=== PATIENT | female | born 1935 | race Caucasian/White ===

== ENCOUNTER 2017-12-22 05:30 | Inpatient (IN) | payer OTHER ==
[~2017-12-22] VITALS: Ht 160 cm; Wt 67.1 kg
[2017-12-22] MEDS ORDERED: ALVIMOPAN 12 MG CAPSULE PO ONE ×2 (05:56→07:00)
[2017-12-22] MEDS ORDERED: LEVOFLOXACIN 500 MG/D5W 100 ML IV ONE ×2 (07:00→11:15)
[2017-12-22] MEDS ORDERED: metroNIDAZOLE 500 mg/NS 100 ML PREMIX IV ONE (07:00)
[2017-12-22] MEDS ORDERED: D5LR 1,000 ML IV.SOLN IV ONE (07:30)
[2017-12-22] MEDS ORDERED: metroNIDAZOLE 500 mg/NS 100 mL IVPB IV ONE (07:30)
[2017-12-22] MEDS ORDERED: MIDAZOLAM HCL 5 MG/5 ML VIAL IVP ONE (07:30)
[2017-12-22] MEDS ORDERED: LR 1,000 ML IV.SOLN IV ONE (07:30)
[2017-12-22] MEDS ORDERED: SEVOFLURANE 15 MIN GAS INH ONE (07:30)
[2017-12-22] MEDS ORDERED: ePHEDrine sulfate 50 MG/ML VIAL IVP ONE (07:30)
[2017-12-22] MEDS ORDERED: NEOSTIGMINE METHYLSULFATE 1 MG/ML, 10 ML VIAL IVP ONE (07:30)
[2017-12-22] MEDS ORDERED: GLYCOPYRROLATE 0.2 MG/ML VIAL IJ ONE (07:30)
[2017-12-22] MEDS ORDERED: ROCURONIUM BROMIDE 10 MG/ML (ZEMURON) IV ONE (07:30)
[2017-12-22] MEDS ORDERED: LEVOFLOXACIN 500 MG/D5W 100 ML PIGGYBACK IV ONE (07:30)
[2017-12-22] MEDS ORDERED: PROPOFOL 200MG/ 20ML VIAL (DIPRIVAN) IV ONE (07:30)
[2017-12-22] MEDS ORDERED: POLYMYXIN 500,000/BACIT.10,000 UNITS in NS IRR 1 L IR ONE (08:35)
[2017-12-22] MEDS ORDERED: NALOXONE HCL 0.4 MG/ML AMP (NARCAN) IVP PRN (08:45)
[2017-12-22] MEDS ORDERED: FENT2mCg/mL-ROPIVA0.2%/NS EPID 100 ML EP SCH (08:45)
[2017-12-22] MEDS ORDERED: DIPHENHYDRAMINE INJ 50 MG/ML VIAL IVP PRN (08:45)
[2017-12-22] MEDS ORDERED: ONDANSETRON HCL 4 MG/2 ML VIAL IVP PRN ×2 (08:45→11:15)
[2017-12-22] MEDS ORDERED: NALBUPHINE HCL 10 MG/ML AMP IVP PRN (08:45)
[2017-12-22] MEDS ORDERED: ROPIVACAINE 0.2% 100 ML ONE (09:25)
[2017-12-22] MEDS: D5/0.45 NS 1,000 ML IV SCH ×2 (11:09→21:09)
[2017-12-22] MEDS ORDERED: HYDROcodone/ACETAMIN 5-325 MG TAB (NORCO/ VICODIN) PO PRN (11:15)
[2017-12-22] MEDS: metroNIDAZOLE 500 mg/NS 100 ML IV SCH ×3 (12:00→21:53)
[2017-12-22 12:03] LABS: HEMATOCRIT 33.1 % (36-48); HEMOGLOBIN 10.7 g/dL (12.0-16.0)
--- NOTE | 2017-12-22 12:08 | NUR ---
ADMIT NOTE PATIENT ARRIVED VIA GURNEY WITH OR NURSE, FENTANYL EPIDURAL DRIP. PATIENT REPORTS DULL ACHE TO LEFT ABDOMEN. LEFT ABDOMEN COVERED IN CLEAN AND DRY SURGICAL DRESSING. S/P HEMICOLECTOMY. FAMILY IS AT BEDSIDE. PATIENT IS DROWSY, ORIENTED X 4, ADVISED THAT SHE MAY HAVE ICE CHIPS AND SIPS, NO JUICE OR ANY OTHER FOODS. FAMILY IS CONCERNED ABOUT PATIENT'S BLOOD GLUCOSE, CONFIRMED PATIENT WILL GET ACCUCHECKS DURING STAY. BED IN LOW AND LOCKED POSITION, 3 SIDE RAILS UP. ASKED PATIENT NOT TO ATTEMPT TO GET OUT OF BED AT THIS TIME AND TO CALL FOR ASSISTANCE. PER OPHTHALMIC TECH PATIENT HAS TWO WATERY DIARRHEA BM IN RECOVERY, GRAY CATH PLACED IN OR, NO URINE AT THIS TIME. IV OF LR INFUSING, D5NS HUNG, CLAMPED. PER OR BG WAS 168. LUNGS CLEAR 1000CM ON INSPIROMETER, SHEET IRONWORKER AND CONTINUOUS PULSE OX PLACED ON PATIENT. POST SURGERY VITALS IN PROCESS. ALL VITALS WNL AT THIS TIME.
[2017-12-22 12:09] LABS: ANION GAP 8 (5-15); CALCIUM 8.1 mg/dL (8.4-11.0); CHLORIDE 108 mmol/L (98-107); CREATININE 0.89 mg/dL (0.55-1.30); GLUCOSE 176 mg/dL (70-99); SODIUM SERUM 141 mmol/L (136-145); UREA NITROGEN, BLOOD 21 mg/dL (8-21)
[2017-12-22 12:20] VITALS: BP_SYST 121
[2017-12-22] MEDS: HYDROmorphone 1 MG INJ. 1 MG/ML AMPUL IVP PRN ×2 (12:46→20:30)
[2017-12-22] MEDS ORDERED: DEXTROSE 50% JECT 50 ML DISP.SYRIN IVP PRN (13:30)
[2017-12-22 15:08] VITALS: BP_SYST 118
--- NOTE | 2017-12-22 15:30 | NUR ---
rounds rec patient asleep with family at bedside. ivf infusing well on the l hand. no infiltration noted.eodural cath intact on the back. hob slightly elevated with o2 at 2 liters via nasal cannula. no sob noted. abd dressing dry and intact. no bleeding noted. aguirre cath intact and draining to abelardo output. angie scd in placed. asleep and denies pain at this time.
[2017-12-22] MEDS: INSULIN REGULAR, HUMAN 100 UNITS/ML, 10 ML VIAL (novoLIN R) SUBCUT PRN ×2 (17:27→23:16)
--- NOTE | 2017-12-22 18:00 | NUR ---
rounds dr garcia was called covering for dr westfall and reported bleeding on the lower part of the abdomen. band aid was removed and redressed. reinforced dressing was done. will observe for any further bleeding. no sob noted.
--- NOTE | 2017-12-22 19:00 | NUR ---
closing notes no further bleeding noted on the lower abdomen dressing. family in the room with patient. no sob noted. call light within reached. bed in low position and call light within reached
[2017-12-22] MEDS ORDERED: COMMUNICATION ORDER XX ONE (19:15)
[2017-12-22] MEDS: FENT2mCg/mL-ROPIVA0.2%/NS EPID 200 ML EP SCH (19:52)
[2017-12-22 20:00] VITALS: BP_SYST 121
--- NOTE | 2017-12-22 20:00 | NUR ---
Initial PM Note Pt was received lying in bed fully awake, alert and oriented x4. Speech is clear and pt is able to make her needs known. Family members are visiting at the bedside. Epidural Fentanyl/Ropivacaine is infusing well at 13ml/hr with the site dry and intact. Pt denies numbness or tingling sensation. Abdominal dressing is dry and intact. Pt c/o abdominal incisional pain and RN will medicate pt as ordered by MD. Pt was instructed on nothing by mouth and pt verbalized understanding. Skin is warm and dry to touch. No signs or symptoms of hypoglycemia or hyperglycemia noted. IVF of D5 1/2 NS is infusing well in LH at 100ml/hr without any signs of infiltration. Centeno Catheter to gravity drainage is intact and draining clear yellowish urine. Pt was instructed to use IS 10x Q 1hr WA and pt verbalized understanding. Pt's IS use is ranging from 1000ml to 1250ml. Fall and safety precautions are in place. Pt was instructed to call for assistance as needed and pt verbalized understanding. Call light is with pt and bed alarm is on. Will continue to monitor pt.
--- NOTE | 2017-12-22 20:30 | NUR ---
Pain Medication Dilaudid 1mg was given IV for c/o abdominal incisional pain with relief. IVF is infusing well in . Fall and safety precautions are in place. Pt was instructed to call for assistance as needed and pt verbalized understanding. Call light is with pt and bed alarm is on. Will continue to monitor pt.
[2017-12-22] MEDS: ALVIMOPAN 12 MG CAPSULE PO SCH (21:48)
[2017-12-22] MEDS: FAMOTIDINE PF 20 MG/2 ML VIAL IVP SCH (21:49)
--- NOTE | 2017-12-22 22:00 | NUR ---
Rounds Pt is sleeping quietly in bed and easily arousable. Epidural Fentanyl/Ropivacaine and IVF of D5 1/2 NS are both infusing well with the sites dry and intact. Pt denies pain or discomfort at this time. Call light is with pt and bed alarm is on. Will continue to monitor pt.
--- NOTE | 2017-12-23 | NUR ---
Rounds Pt is sleeping and easily arousable. No acute distress noted. Epidural infusion and peripheral IVF are infusing well. Abdominal dressing remains dry and intact. Call light is with pt and bed alarm is on. Will continue to monitor pt.
[2017-12-23 00:10] VITALS: BP_SYST 124
--- NOTE | 2017-12-23 02:00 | NUR ---
Rounds Pt is sleeping without any distress noted. Fall and safety precautions are in place. Call light is with pt and bed alarm is on.
[2017-12-23] MEDS: D5/0.45 NS 1,000 ML IV SCH ×3 (02:38→21:58)
--- NOTE | 2017-12-23 04:00 | NUR ---
Rounds Pt is sleeping without any distress noted. Fall and safety precautions are in place. Call light is with pt and bed alarm is on. IVF is infusing well in LH at 100ml/hr. Epidural drip is infusing well at 13ml/hr. Will continue to monitor pt.
[2017-12-23] MEDS: HYDROmorphone 1 MG INJ. 1 MG/ML AMPUL IVP PRN (05:32)
--- NOTE | 2017-12-23 05:32 | NUR ---
Pain Medication Dilaudid 1mg was given IV for c/o abdominal incisional pain with relief. IVF is infusing well in LH. Epidural drip is infusing well at 13ml/hr. Fall and safety precautions are in place. Call light is with pt and bed alarm is on. Will continue to monitor pt.
[2017-12-23] MEDS: INSULIN REGULAR, HUMAN 100 UNITS/ML, 10 ML VIAL (novoLIN R) SUBCUT PRN ×4 (05:39→23:59)
[2017-12-23 06:33] LABS: ALANINE AMINOTRANSFERASE 17 U/L (12-78); ALBUMIN 2.3 g/dL (3.4-4.8); ANION GAP 5 (5-15); ASPARTATE AMINOTRANSFERASE 17 U/L (10-37); CALCIUM 7.9 mg/dL (8.4-11.0); CHLORIDE 107 mmol/L (98-107); CREATININE 1.17 mg/dL (0.55-1.30); GLUCOSE 286 mg/dL (70-99); POTASSIUM 4.8 mmol/L (3.5-5.1); SODIUM SERUM 138 mmol/L (136-145); TOTAL BILIRUBIN 0.4 mg/dL (0.0-1.0); UREA NITROGEN, BLOOD 25 mg/dL (8-21)
[2017-12-23 06:51] LABS: BASOPHILS % (AUTO) 0.3 % (0.0-2.0); EOSINOPHILS % (AUTO) 0.1 % (0.0-4.0); HEMATOCRIT 28.3 % (36-48); HEMOGLOBIN 9.5 g/dL (12.0-16.0); LYMPHOCYTES # (AUTO) 0.9 K/uL (1.0-5.5); LYMPHOCYTES % (AUTO) 8.1 % (20.5-51.5); MEAN CORPUSCULAR HEMOGLOBIN 27 pg (27-31); MEAN CORPUSCULAR HGB CONC 34 % (32-36); MEAN CORPUSCULAR VOLUME 79 fL (79.0-98.0); MONOCYTES # (AUTO) 1.2 K/uL (0.0-1.0); MONOCYTES % (AUTO) 11.2 % (1.7-9.3); NEUTROPHILS # (AUTO) 8.5 K/uL (1.8-7.7); NEUTROPHILS % (AUTO) 80.3 % (40.0-70.0); PLATELET COUNT (AUTO) 152 K/uL (130-430); RED BLOOD CELL COUNT(AUTO) 3.57 MIL/uL (4.2-6.2); RED CELL DISTRIBUTION WIDTH 14.9 % (9.0-15.0); WHITE BLOOD COUNT (AUTO) 10.6 K/uL (4.8-10.8)
--- NOTE | 2017-12-23 06:56 | NUR ---
Closing Note Pt is awake and resting comfortably in bed. IVF is infusing well in LH. Abdominal dressing is dry and intact with abdominal binder in place. All pt's needs were attended to. No fall or injury noted this shift. Call light is with pt and bed alarm is on. Will endorse to day shift nurse.
--- NOTE | 2017-12-23 07:55 | NUR ---
INITIAL NOTE RECEIVED PT IN BED, NO S/S OF DISTRESS OR SOB NOTED, PT HAS NO C/O PAIN AT THIS TIME, PT IN STABLE CONDITION, PT AAOX4, VERBAL. IV CATHETER PATENT, NO SIGNS OF INFECTION OR INFILTRATION NOTED. SAFETY PRECAUTIONS IN PLACE, BED AT LOWEST POSITION, CALL LIGHT WITHIN REACH, FALL PRECAUTIONS IN PLACE, WILL CONTINUE TO MONITOR PT FOR ANY CHANGES. PT HAS ABD BINDER IN PLACE, EDUCATED PT ON USE OF INCENTIVE SPIROMETER, PT TO USE 10 TIMES AN HOUR WHILE AWAKE, PT VERBALIZED UNDERSTANDING, PT AT 1000ML. PT ON EPIDURAL DRIP AT 13ML/HR, CATHETER INTACT. F/C DRAINING VIA GRAVITY. ABD DRESSING CLEAN AND DRY. PT ON OXYGEN 2 LITERS VIA NASAL CANNULA, SATURATION OF 99%.
[2017-12-23] MEDS: FAMOTIDINE PF 20 MG/2 ML VIAL IVP SCH ×2 (08:41→21:31)
[2017-12-23] MEDS: ALVIMOPAN 12 MG CAPSULE PO SCH ×2 (08:41→21:30)
[2017-12-23] MEDS: ENOXAPARIN SODIUM 30 MG/0.3 ML SYRINGE SUBCUT SCH (08:43)
[2017-12-23 08:54] VITALS: BP_SYST 144
--- NOTE | 2017-12-23 10:55 | NUR ---
ROUNDS PT IN BED, NO S/S OF DISTRESS OR SOB NOTED, PT HAS NO C/O PAIN AT THIS TIME, PT IN STABLE CONDITION, PT RESTING COMFORTABLY, WILL CONTINUE TO MONITOR PT FOR ANY CHANGES.
[2017-12-23] MEDS: HYDROcodone/ACETAMIN 5-325 MG TAB (NORCO/ VICODIN) PO PRN (11:10)
[2017-12-23] MEDS: LEVOFLOXACIN 250 MG/D5W 50 ML IV SCH (11:18)
[2017-12-23 11:25] VITALS: BP_SYST 139
[2017-12-23] MEDS: FENT2mCg/mL-ROPIVA0.2%/NS EPID 200 ML EP SCH (11:28)
--- NOTE | 2017-12-23 12:10 | NUR ---
ROUNDS PT IN BED, NO S/S OF DISTRESS OR SOB NOTED, PT HAS NO C/O PAIN AT THIS TIME, PT IN STABLE CONDITION, PT RESTING COMFORTABLY, WILL CONTINUE TO MONITOR PT FOR ANY CHANGES. FAMILY AT BEDSIDE.
--- NOTE | 2017-12-23 14:55 | NUR ---
ROUNDS PT IN BED, NO S/S OF DISTRESS OR SOB NOTED, PT HAS NO C/O PAIN AT THIS TIME, PT IN STABLE CONDITION, PT RESTING COMFORTABLY, WATCHING TV, WILL CONTINUE TO MONITOR PT FOR ANY CHANGES. FAMILY AT BEDSIDE.
[2017-12-23 15:14] VITALS: BP_SYST 130
[2017-12-23] MEDS: METOCLOPRAMIDE HCL 10 MG/2 ML VIAL IVP SCH ×2 (17:21→23:54)
--- NOTE | 2017-12-23 18:17 | NUR ---
CLOSING NOTE PT IN BED, NO S/S OF DISTRESS OR SOB NOTED, PT HAS NO C/O PAIN AT THIS TIME, PT IN STABLE CONDITION, PT AAOX4, VERBAL. IV CATHETER PATENT, NO SIGNS OF INFECTION OR INFILTRATION NOTED. SAFETY PRECAUTIONS IN PLACE, BED AT LOWEST POSITION, CALL LIGHT WITHIN REACH, FALL PRECAUTIONS IN PLACE, WILL ENDORSE CARE OF PT TO INCOMING NURSE. PT HAS ABD BINDER IN PLACE, EDUCATED PT ON USE OF INCENTIVE SPIROMETER, PT AT 1000ML. PT ON EPIDURAL DRIP AT 13ML/HR, CATHETER INTACT. F/C DRAINING VIA GRAVITY. ABD DRESSING CLEAN AND DRY.
[2017-12-23 20:00] VITALS: BP_SYST 122
--- NOTE | 2017-12-23 20:00 | NUR ---
Initial PM Note Pt is lying in bed fully awake, alert and oriented x4. One family member is visiting at the bedside. Epidural Fentanyl/Ropivacaine is infusing well at 13ml/hr with the site dry and intact. Pt denies numbness or tingling sensation. Abdominal dressing is dry and intact with abdominal binder in place. No c/o pain or discomfort at this time. Pt is tolerating clear liquid diet by mouth. No c/o nausea or vomiting. Skin is warm and dry to touch. No signs or symptoms of hypoglycemia or hyperglycemia noted. IVF of D5 1/2 NS is infusing well in LH at 100ml/hr without any signs of infiltration. Centeno Catheter to gravity drainage is intact and draining clear yellowish urine. Pt was instructed to use IS 10x Q 1hr WA and pt verbalized understanding. Pt demonstrated good IS use with volume of 1000ml to 1250ml. Fall and safety precautions are in place. Pt was instructed to call for assistance as needed and pt verbalized understanding. Call light is with pt and bed alarm is on. Will continue to monitor pt.
--- NOTE | 2017-12-23 22:00 | NUR ---
Rounds Pt is awake and denies pain or discomfort. Epidural Fentanyl/Ropivacaine and IVF of D5 1/2 NS are both infusing well with the sites dry and intact. Fall and safety precautions are in place. Call light is with pt and bed alarm is on. Will continue to monitor pt.
[2017-12-23 23:40] VITALS: BP_SYST 142
--- NOTE | 2017-12-23 23:59 | NUR ---
Blood Sugar Accucheck 282 and 6 units Regular Insulin given SQ. Skin remains warm and dry to touch. IVF is infusing well in LH. Epidural infusion is in progress and no c/o pain or discomfort. Call light is with pt and bed alarm is on. Will continue to monitor pt.
[2017-12-24] VITALS (7 sets, daily range): BP systolic 99–155
[2017-12-24] MEDS: FENT2mCg/mL-ROPIVA0.2%/NS EPID 200 ML EP SCH (01:22)
--- NOTE | 2017-12-24 02:00 | NUR ---
Rounds Pt is sleeping comfortably in bed. IVF and Epidural Drip are infusing well. Fall and safety precautions are in place. Call light is with pt and bed alarm is on. Will continue to monitor pt.
--- NOTE | 2017-12-24 04:00 | NUR ---
Rounds Pt is sleeping comfortably in bed without any respiratory distress noted. Fall and safety precautions are in place. Call light is with pt and bed alarm is on. IVF is infusing well in LH at 100ml/hr. Epidural drip is infusing well at 13ml/hr. Will continue to monitor pt.
[2017-12-24] MEDS: METOCLOPRAMIDE HCL 10 MG/2 ML VIAL IVP SCH ×4 (05:13→23:52)
[2017-12-24] MEDS: INSULIN REGULAR, HUMAN 100 UNITS/ML, 10 ML VIAL (novoLIN R) SUBCUT PRN ×4 (05:15→23:57)
--- NOTE | 2017-12-24 05:45 | NUR ---
Centeno Catheter Removal Centeno Catheter was removed per MD's order and well tolerated by pt.
--- NOTE | 2017-12-24 07:15 | NUR ---
Closing Note Pt is awake and resting comfortably in bed. IVF and Epidural drip are infusing well. No c/o pain or discomfort at this time. Abdominal dressing is dry and intact with abdominal binder in place. All pt's needs were attended to. No fall or injury noted this shift. Call light is with pt and bed alarm is on. Will endorse to day shift nurse.
--- NOTE | 2017-12-24 07:45 | NUR ---
Discontinued epidural drip Seen and examined by Dr. Lopez pain is controlled , epidural catheter removed by the anesthesiologist Dr. Lopez ,covered by band aid.
--- NOTE | 2017-12-24 08:00 | NUR ---
Note Pt resting in bed with her breakfast tray across her at this time. Pt has O2 on at 2L/nc. IV in left hand intact and patent infusing IVF's well. Abdominal dressing CDI and pt has abdominal binder on at this time as well. Pt denies any pain/discomfort at this time. Call light within reach. Tele unit attached and intact at this time.
[2017-12-24] MEDS: ALVIMOPAN 12 MG CAPSULE PO SCH ×2 (08:31→20:39)
[2017-12-24] MEDS: HYDROcodone/ACETAMIN 5-325 MG TAB (NORCO/ VICODIN) PO PRN ×2 (08:32→12:49)
[2017-12-24] MEDS: ENOXAPARIN SODIUM 30 MG/0.3 ML SYRINGE SUBCUT SCH (08:33)
[2017-12-24] MEDS: FAMOTIDINE PF 20 MG/2 ML VIAL IVP SCH ×2 (08:33→20:39)
--- NOTE | 2017-12-24 09:36 | NUR ---
Note Pt's family at bedside called RN to assess pt. Pt was non-responsive and eyes fixed. Pt was givenO2 at 4L/nc and SBP was taken 137/65 and HR at 122. O2 sats 96%. O2 was taken off at 0830am and pt was encouraged to use IS 10X q1' and increase fluid intake. Pt now AAO X3 and pt's O2 sats at 94% on 2L/nc. Pt's tele unit still intact and attached. SBP at 127/66. Pt's family at bedside. Call light within reach. Pt has been next to nurses' station all shift for close observation. Addendum: 12/24/17 at 0947 by Neelam Barkley RN Pt had an episode of vaso-vagal - drinking cold water at this time.
--- NOTE | 2017-12-24 09:45 | NUR ---
ATTENDING AND GEN SURGEON DR Magalie SOLO WAS CALLED RE: INFORM HIM THAT PT HAD EPISODE OF VASO VAGEL. ANGY, HIS AUTOMOBILE OR TRUCK RENTAL DISPATCHER SAID THAT HE IS IN A PROCEDURE. TRIED CALLING .HIM ON HIS CELL PHONE
--- NOTE | 2017-12-24 10:00 | NUR ---
EMANUEL CHAPARRO WAS CALLED, RE: TO INFORM HER THAT PT HAD EPISODE OF VASO VAGEL. SPOKE TO REGINO
--- NOTE | 2017-12-24 10:19 | NUR ---
DISCHARGE PLANNING CM spoke with patient and family at the bedside. All are agreeable to patient going to a SNF. Patient and family state that they prefer [facility] as their first choice. State that they have a family member who was there that raved about it and also state that they have read really good reviews. Lastly, the patient has a friend who is currently a patient at [facility] and they believe it would aid in lifting her spirits and help her heal faster. CM asked what their second choice was and they stated [facility]. CM explained that the doctors have recommended [facility], and they stated that is their third choice. They are very adamant and very strongly want the patient to go to [facility] when the patient is clear for d/c. Will follow up on this upon d/c order.
[2017-12-24 10:51] LABS: BASOPHILS # (AUTO) 0.2 K/uL (0.0-0.2); BASOPHILS % (AUTO) 1.1 % (0.0-2.0); EOSINOPHILS # (AUTO) 0.1 K/uL (0.0-0.4); EOSINOPHILS % (AUTO) 0.3 % (0.0-4.0); HEMATOCRIT 29.3 % (36-48); HEMOGLOBIN 9.4 g/dL (12.0-16.0); LYMPHOCYTES # (AUTO) 0.7 K/uL (1.0-5.5); LYMPHOCYTES % (AUTO) 4.2 % (20.5-51.5); MEAN CORPUSCULAR HEMOGLOBIN 25 pg (27-31); MEAN CORPUSCULAR HGB CONC 32 % (32-36); MEAN CORPUSCULAR VOLUME 79 fL (79.0-98.0); MONOCYTES # (AUTO) 1.5 K/uL (0.0-1.0); MONOCYTES % (AUTO) 8.4 % (1.7-9.3); NEUTROPHILS # (AUTO) 15.3 K/uL (1.8-7.7); PLATELET COUNT (AUTO) 167 K/uL (130-430); RED BLOOD CELL COUNT(AUTO) 3.72 MIL/uL (4.2-6.2); RED CELL DISTRIBUTION WIDTH 14.8 % (9.0-15.0)
[2017-12-24 10:54] LABS: ALANINE AMINOTRANSFERASE 19 U/L (12-78); ALBUMIN 2.3 g/dL (3.4-4.8); ANION GAP 10 (5-15); ASPARTATE AMINOTRANSFERASE 19 U/L (10-37); CALCIUM 7.8 mg/dL (8.4-11.0); CHLORIDE 103 mmol/L (98-107); CREATININE 0.98 mg/dL (0.55-1.30); GLUCOSE 370 mg/dL (70-99); POTASSIUM 3.8 mmol/L (3.5-5.1); SODIUM SERUM 135 mmol/L (136-145); TOTAL BILIRUBIN 0.5 mg/dL (0.0-1.0); UREA NITROGEN, BLOOD 17 mg/dL (8-21)
[2017-12-24] MEDS: LEVOFLOXACIN 250 MG/D5W 50 ML IV SCH (11:26)
--- NOTE | 2017-12-24 12:30 | NUR ---
Note Pt resting in bed with her O2 at 2L/nc. Pt worked with physical therapy on ambulation and exercises. Pt tolerated ambulation well and no severe SOB/resp distress was noted. Pt was seen by Dr Resendez at 1030am after assessment pt had ABG's done and results were shown to Dr Resendez at this time as well.
--- NOTE | 2017-12-24 13:00 | NUR ---
Note Dr Clark at pt's bedside and assessing pt at this time. Pt's abdominal dressing was dc'd and no new dressing was applied. Abdominal binder put back on by Dr Clark. Pt's 2 family members at bedside. IVF's infusing well through left hand IV site. Call light within reach.
[2017-12-24] MEDS ORDERED: IPRATROPIUM BROM 0.5 MG/2.5 ML VIAL.NEB (ATROVENT) INH PRN (13:45)
[2017-12-24] MEDS ORDERED: ALBUTEROL SULFATE 0.083% 2.5 MG/3 ML VIAL.NEB INH PRN (13:45)
[2017-12-24] MEDS ORDERED: ALBUTEROL SULFATE 0.083% 2.5 MG/3 ML VIAL.NEB INH ONE (14:01)
[2017-12-24] MEDS ORDERED: IPRATROPIUM BROM 0.5 MG/2.5 ML VIAL.NEB (ATROVENT) INH ONE (14:01)
[2017-12-24] MEDS ORDERED: FUROSEMIDE 20 MG/2 ML VIAL IVP ONE (15:00)
[2017-12-24] MEDS ORDERED: ALBUTEROL SULFATE 0.083% 2.5 MG/3 ML VIAL.NEB INH SCH (15:00)
--- NOTE | 2017-12-24 16:00 | NUR ---
Note Pt sitting up in bed eating her Glucerna at this time. Family at bedside at this time. No SOB/resp distress or pain/discomfort noted at this time. Call light within reach.
[2017-12-24] MEDS: D5/0.45 NS 1,000 ML IV SCH (17:45)
--- NOTE | 2017-12-24 18:30 | NUR ---
Note Pt sitting up in bed with 4-5 family members at bedside. Pt encouraged to deep breathe and cough. Pt encouraged all shift to move herself in bed and use BSC to void and call for assistance when getting OOB to BSC. No needs noted. Pain/discomfort tolerable at this time. Pt has abdominal binder on in bed. No SOB/resp distress noted. Pt wants to keep O2 on at 2L/nc for comfort. Call light within reach.
[2017-12-24] MEDS: ALBUTEROL SULFATE 0.083% 2.5 MG/3 ML VIAL.NEB INH SCH ×2 (19:10→23:00)
[2017-12-24] MEDS: IPRATROPIUM BROM 0.5 MG/2.5 ML VIAL.NEB (ATROVENT) INH SCH ×2 (19:10→23:00)
--- NOTE | 2017-12-24 19:30 | NUR ---
Initial PM Note Pt was received lying in bed fully awake, alert and oriented x4. Pt's zoroastrianism members are visiting at the bedside. Abdominal incision is clean, dry and intact with melanie and abdominal binder in place. No c/o pain or discomfort. Pt is wheezing slightly and oxygen saturation is 98% on oxygen at 2L/min per NC. Pt was encouraged to use IS 10x Q 1hr WA and pt verbalized understanding. Pt's IS use is ranging from 500ml to 750ml. Skin is warm and dry to touch. No signs or symptoms of hypoglycemia or hyperglycemia noted. Pt has no IV access at this time. Pt stated IV line came out from her RH when she attempted to use BSC. IV site noted without any bleeding and the Angiocath is still attached to the dressing intact. Will start another IV line. Fall and safety precautions are in place. Pt was instructed to call for assistance as needed and pt verbalized understanding. Call light is with pt and bed alarm is on. Will continue to monitor pt.
--- NOTE | 2017-12-24 20:15 | NUR ---
IV Restart New IV line was started in RFA with Angiocath 22G by Admitting Nurse Saman. IVF of D5 1/2NS was resumed at 60ml/hr. Call light is with pt and bed alarm is on. Will continue to monitor pt.
--- NOTE | 2017-12-24 22:32 | NUR ---
Paged Dr. Riley dialed [phone], s/w Dai.
[2017-12-24] MEDS ORDERED: LEVOFLOXACIN 500 MG/D5W 100 ML IV SCH (22:45)
[2017-12-24] MEDS ORDERED: LEVOFLOXACIN 250 MG/D5W 0 ML IV ONE (22:51)
--- NOTE | 2017-12-24 23:00 | NUR ---
Paged Dr. Riley to inquire if Blood Cultures should be drawn prior to starting IV Levaquin.
[2017-12-24] MEDS ORDERED: LEVOFLOXACIN 500 MG/D5W 100 ML IV ONE (23:01)
--- NOTE | 2017-12-24 23:19 | NUR ---
Second call for Dr. Riley dialed [phone].
--- NOTE | 2017-12-24 23:29 | NUR ---
Dr. Riely called back and new order received for blood cultures prior to given IV Levaquin.
--- NOTE | 2017-12-25 01:00 | NUR ---
Rounds Pt is sleeping quietly in bed. Fall and safety precautions are in place. IVF is infusing well in RFA.
[2017-12-25] MEDS: IPRATROPIUM BROM 0.5 MG/2.5 ML VIAL.NEB (ATROVENT) INH SCH ×4 (03:00→16:09)
[2017-12-25] MEDS: ALBUTEROL SULFATE 0.083% 2.5 MG/3 ML VIAL.NEB INH SCH ×4 (03:00→16:09)
--- NOTE | 2017-12-25 03:00 | NUR ---
Rounds Pt is sleeping comfortably in bed. IVF is infusing well in RFA. Fall and safety precautions are in place. Call light is with pt and bed alarm is on. Will continue to monitor pt.
--- NOTE | 2017-12-25 05:00 | NUR ---
Rounds Pt is sleeping comfortably in bed. Fall and safety precautions are in place. Call light is with pt and bed alarm is on. IVF is infusing well in RFA at 60ml/hr.Will continue to monitor pt.
[2017-12-25] MEDS: METOCLOPRAMIDE HCL 10 MG/2 ML VIAL IVP SCH ×2 (05:25→12:02)
[2017-12-25] MEDS: INSULIN REGULAR, HUMAN 100 UNITS/ML, 10 ML VIAL (novoLIN R) SUBCUT PRN ×2 (05:28→12:02)
--- NOTE | 2017-12-25 06:30 | NUR ---
Closing Note Pt was assisted to bedside recliner per her request. Lower incisional area noted to be oozing small amount of pinkish fluid. ABD pad was applied to the area with abdominal binder in place. Pt denies pain or discomfort. Call light was given to pt and she was instructed to call before getting back to bed. Pt verbalized understanding. IVF is infusing well in RFA. All pt's needs were attended to. Will endorse to day shift nurse.
[2017-12-25 07:04] LABS: HEMATOCRIT 28.6 % (36-48); MEAN CORPUSCULAR HEMOGLOBIN 28 pg (27-31); MEAN CORPUSCULAR HGB CONC 35 % (32-36); MEAN CORPUSCULAR VOLUME 79 fL (79.0-98.0); PLATELET COUNT (AUTO) 181 K/uL (130-430); RED BLOOD CELL COUNT(AUTO) 3.63 MIL/uL (4.2-6.2); RED CELL DISTRIBUTION WIDTH 14.9 % (9.0-15.0); WHITE BLOOD COUNT (AUTO) 23.8 K/uL (4.8-10.8)
[2017-12-25 07:16] LABS: ALANINE AMINOTRANSFERASE 26 U/L (12-78); ALBUMIN 2.4 g/dL (3.4-4.8); ANION GAP 11 (5-15); ASPARTATE AMINOTRANSFERASE 42 U/L (10-37); CALCIUM 8.6 mg/dL (8.4-11.0); CHLORIDE 105 mmol/L (98-107); CREATININE 1.03 mg/dL (0.55-1.30); GLUCOSE 302 mg/dL (70-99); POTASSIUM 3.5 mmol/L (3.5-5.1); SODIUM SERUM 137 mmol/L (136-145); TOTAL BILIRUBIN 0.5 mg/dL (0.0-1.0); UREA NITROGEN, BLOOD 19 mg/dL (8-21)
--- NOTE | 2017-12-25 07:31 | NUR ---
PATIENT A/OX4, SR-ST ON MONITOR. SITTING IN A CHAIR. INSTRUCTED POC AND CALL LIGHT. WILL CONTINUE TO MONITOR.
[2017-12-25 08:00] VITALS: BP_SYST 138
[2017-12-25] MEDS: ALVIMOPAN 12 MG CAPSULE PO SCH (08:19)
[2017-12-25] MEDS: FAMOTIDINE PF 20 MG/2 ML VIAL IVP SCH (08:19)
[2017-12-25] MEDS: ENOXAPARIN SODIUM 30 MG/0.3 ML SYRINGE SUBCUT SCH (08:20)
[2017-12-25] MEDS: D5/0.45 NS 1,000 ML IV SCH (08:28)
[2017-12-25 09:10] LABS: WHITE BLOOD COUNT (AUTO) 17.8 K/uL (4.8-10.8)
--- NOTE | 2017-12-25 09:37 | NUR ---
Nutrition Update Ford Scale 16 noted. Pt admitted for Dz of intestine, unspecified. Diet: full liquid BMI: 26.2 kg/m2 RD to follow per nutrition care standards.
--- NOTE | 2017-12-25 10:25 | NUR ---
DISCHARGE PLANNING Dr. Riley spoke with patient and CM and said patient is clear for d/c to SNF today if bed available. Patient and family member Lali are agreeable to [facility]. Will communicate this to d/c enterprise resource planner.
[2017-12-25] MEDS ORDERED: LEVOFLOXACIN 250 MG/D5W 50 ML IV SCH (12:00)
[2017-12-25 12:19] LABS: BAND % (MANUAL) 1 % (0-6); BASOPHILS % (MANUAL) 0 % (0-2); EOSINOPHILS % (MANUAL) 0 % (0-7); LYMPHOCYTES % (MANUAL) 6 % (20-46); MONOCYTES % (MANUAL) 10 % (0-11)
[2017-12-25 12:30] VITALS: BP_SYST 119
--- NOTE | 2017-12-25 13:42 | NUR ---
Discharge Planning: DCP faxed referral to [facility] (f [phone] p [phone]); pt accepted room 16B. YOVANIP arranged transportation with [facility] (p [phone]) 4:00PM. YOVANIP placed pt packet at nurses station, pt nurse was made aware.
[2017-12-25] MEDS ORDERED: metroNIDAZOLE 500 mg/NS 100 ML IV SCH (14:00)
[2017-12-25 15:23] VITALS: BP_SYST 119
[2017-12-25 16:30] VITALS: BP_SYST 125
--- NOTE | 2017-12-25 18:11 | NUR ---
PT TRANSFERRED Report given to Ronni Garcia. Transfer packet with Transfer Orders and Medication Reconciliation form given to EMT with report. Exitcare provided. [facility] ID band removed, replaced with ID band with pt's name and . IV catheter removed, intact and dressing applied, no active bleeding. All belongings sent with patient. Patient left floor via gurney escorted by EMT in no distress. late entry
== END 2017-12-25 17:20 | DRG 330 ==
LOC: SDS 05:30 → SMU 05:30 → SDS 12:23 → STU 12:24
PROVIDERS: ADMIT Colon & Rectal Surgery; ATTEND Colon & Rectal Surgery
PROC: 0DNL0ZZ Release Transverse Colon, Open Approach (ICD-10-PCS; 2017-12-22)
PROC: 0DNW4ZZ Release Peritoneum, Percutaneous Endoscopic Approach (ICD-10-PCS; 2017-12-22)
PROC: 0DTF0ZZ Resection of Right Large Intestine, Open Approach (ICD-10-PCS; principal; 2017-12-22 07:30)
DX: K63.89 Other specified diseases of intestine (principal); J98.11 Atelectasis; R19.09 Other intra-abdominal and pelvic swelling, mass and lump; R09.02 Hypoxemia; I25.10 Atherosclerotic heart disease of native coronary artery without angina pectoris; E11.51 Type 2 diabetes mellitus with diabetic peripheral angiopathy without gangrene; D72.829 Elevated white blood cell count, unspecified; I12.9 Hypertensive chronic kidney disease with stage 1 through stage 4 chronic kidney disease, or unspecified chronic kidney disease; E11.22 Type 2 diabetes mellitus with diabetic chronic kidney disease; N18.9 Chronic kidney disease, unspecified; Z90.49 Acquired absence of other specified parts of digestive tract; Z88.0 Allergy status to penicillin; K66.0 Peritoneal adhesions (postprocedural) (postinfection); R55 Syncope and collapse
CPT/HCPCS: 36415; 36600; 71045; 80048; 80053; 82803-TC; 82948; 82962; 85007; 85018-TC; 85025; 85027; 87040-TC; 87081; 88307; 94640; 94760; 97110-GP; C1727; J1170; J1650; J1815; J1940; J1956; J2250; J2704; J2710; J2765; J2795; J3010; J3490; J7120; J7613

== ENCOUNTER 2018-01-12 09:05 | Inpatient (IN) | payer OTHER ==
[~2018-01-12] VITALS: Ht 160 cm; Wt 76.7 kg
[2018-01-12 09:20] VITALS: BP_SYST 153
[2018-01-12] MEDS ORDERED: NACL 0.9% 1,000 ML IV ONE (09:45)
[2018-01-12 09:58] LABS: BASOPHILS % (AUTO) 0.5 % (0.0-2.0); EOSINOPHILS # (AUTO) 0.3 K/uL (0.0-0.4); EOSINOPHILS % (AUTO) 4.4 % (0.0-4.0); HEMATOCRIT 30.6 % (36-48); HEMOGLOBIN 10.1 g/dL (12.0-16.0); LYMPHOCYTES % (AUTO) 16.4 % (20.5-51.5); MEAN CORPUSCULAR HEMOGLOBIN 26 pg (27-31); MEAN CORPUSCULAR HGB CONC 33 % (32-36); MEAN CORPUSCULAR VOLUME 79 fL (79.0-98.0); MONOCYTES # (AUTO) 0.8 K/uL (0.0-1.0); MONOCYTES % (AUTO) 12.9 % (1.7-9.3); NEUTROPHILS # (AUTO) 4.1 K/uL (1.8-7.7); NEUTROPHILS % (AUTO) 65.8 % (40.0-70.0); PLATELET COUNT (AUTO) 274 K/uL (130-430); RED BLOOD CELL COUNT(AUTO) 3.87 MIL/uL (4.2-6.2); RED CELL DISTRIBUTION WIDTH 15.3 % (9.0-15.0); WHITE BLOOD COUNT (AUTO) 6.2 K/uL (4.8-10.8)
[2018-01-12] MEDS ORDERED: CLINDAMYCIN 900 mg/50mL D5W 50 ML IV ONE (10:15)
[2018-01-12 10:23] LABS: ANION GAP 4 (5-15); CALCIUM 8.7 mg/dL (8.4-11.0); CHLORIDE 100 mmol/L (98-107); CREATININE 0.68 mg/dL (0.55-1.30); GLUCOSE 323 mg/dL (70-99); POTASSIUM 4.3 mmol/L (3.5-5.1); SODIUM SERUM 134 mmol/L (136-145); UREA NITROGEN, BLOOD 12 mg/dL (8-21)
[2018-01-12 10:25] LABS: PROTHROMBIN TIME 10.2 SECS (9.5-12.5)
[2018-01-12 10:28] LABS: ALANINE AMINOTRANSFERASE 14 U/L (12-78); ALBUMIN 2.3 g/dL (3.4-4.8); ASPARTATE AMINOTRANSFERASE 14 U/L (10-37); TOTAL BILIRUBIN 0.4 mg/dL (0.0-1.0)
[2018-01-12] MEDS ORDERED: MULT-300 PO (10:50)
[2018-01-12] MEDS ORDERED: FLEETMO RC (10:50)
[2018-01-12] MEDS ORDERED: LOVI30 SQ (10:50)
[2018-01-12] MEDS ORDERED: ACET-2165 PO (10:50)
[2018-01-12] MEDS ORDERED: FERR-69 PO (10:50)
[2018-01-12] MEDS ORDERED: ASCO500T20 PO (10:50)
[2018-01-12] MEDS ORDERED: BISA-79 PO ×2 (10:50)
[2018-01-12] MEDS ORDERED: HYDR-4272 PO (10:50)
[2018-01-12] MEDS ORDERED: MOM PO (10:50)
[2018-01-12] MEDS ORDERED: FAMO20TA8 PO (10:50)
[2018-01-12] MEDS ORDERED: [UNRECOGNIZED DRUG - CODE] PO (10:50)
[2018-01-12] MEDS ORDERED: METO-290 PO (10:50)
[2018-01-12] MEDS ORDERED: DAPT500V3 IV (10:50)
[2018-01-12] MEDS ORDERED: cloNIDine HCL 0.1 MG TABLET PO ONE (11:30)
[2018-01-12 11:44] LABS: BILIRUBIN,URINE NEGATIVE (NEGATIVE); BLOOD, URINE 1+ (NEGATIVE); CLARITY/URINE CLEAR (CLEAR); COLOR,URINE YELLOW (YELLOW); GLUCOSE,URINE 2+ (NEGATIVE); KETONES,URINE NEGATIVE (NEGATIVE); LEUKOCYTE ESTERASE ,URINE TRACE (NEGATIVE); NITRITE, URINE NEGATIVE (NEGATIVE); PH,URINE 6.5 (5.0-8.0); PROTEIN URINE NEGATIVE (NEGATIVE); UROBILINOGEN,URINE 0.2 (0.2-1.0)
[2018-01-12] MEDS ORDERED: *HEPARIN PER PHARMACY XX ONE (11:45)
[2018-01-12] MEDS ORDERED: DEXTROSE 50% JECT 50 ML DISP.SYRIN IVP PRN (11:45)
[2018-01-12] MEDS ORDERED: BISACODYL 5 MG TABLET.DR (DULCOLAX) PO PRN (11:45)
[2018-01-12 11:55] LABS: BACTERIA,URINE FEW /HPF (None Seen); RBC,URINE 0-3 /HPF (0-3)
[2018-01-12 11:56] LABS: MUCUS,URINE None Seen /LPF (None Seen)
[2018-01-12 12:27] VITALS: BP_SYST 160
[2018-01-12] MEDS ORDERED: HEPARIN SODIUM,PORCINE 5000 UNITS/ML VIAL SUBCUT ONE (12:30)
[2018-01-12] MEDS ORDERED: HEPARIN SODIUM,PORCINE 2000 UNITS/0.4 ML BOLUS IVP PRN (12:30)
[2018-01-12] MEDS ORDERED: HEPARIN SODIUM,PORCINE 3000 UNITS/0.6 ML BOLUS IVP PRN (12:30)
[2018-01-12] MEDS ORDERED: HEPARIN SODIUM,PORCINE 5000 UNITS/ML VIAL IV ONE (12:30)
[2018-01-12] MEDS: HEPARIN 25,000 UNITS in 250 ML PREMIX IV PRN ×2 (13:04→21:34)
[2018-01-12] MEDS: INSULIN REGULAR, HUMAN 100 UNITS/ML, 10 ML VIAL (novoLIN R) SUBCUT PRN (13:19)
[2018-01-12] MEDS: D5NS 1,000 ML IV SCH (15:06)
[2018-01-12 15:14] VITALS: BP_SYST 155
[2018-01-12 19:50] VITALS: BP_SYST 158
[2018-01-13] VITALS (7 sets, daily range): BP systolic 149–165
[2018-01-13] MEDS: INSULIN REGULAR, HUMAN 100 UNITS/ML, 10 ML VIAL (novoLIN R) SUBCUT PRN ×3 (00:16→17:23)
[2018-01-13] MEDS: HEPARIN 25,000 UNITS in 250 ML PREMIX IV PRN (04:34)
[2018-01-13] MEDS: D5NS 1,000 ML IV SCH (06:27)
[2018-01-13] MEDS: ASCORBIC ACID 500 MG TABLET PO SCH (09:00)
[2018-01-13] MEDS ORDERED: ENOXAPARIN SODIUM 30 MG/0.3 ML SYRINGE SQ SCH (09:00)
[2018-01-13] MEDS ORDERED: LR 1,000 ML IV.SOLN IV ONE (11:30)
[2018-01-13] MEDS ORDERED: fentaNYL CITRATE/PF 100 MCG/2 ML AMP IVP ONE (11:30)
[2018-01-13] MEDS ORDERED: PROPOFOL 200MG/ 20ML VIAL (DIPRIVAN) IV ONE (11:30)
[2018-01-13] MEDS ORDERED: SEVOFLURANE 15 MIN GAS INH ONE (11:30)
[2018-01-13] MEDS ORDERED: MIDAZOLAM HCL 5 MG/5 ML VIAL IVP ONE (11:30)
[2018-01-13] MEDS ORDERED: BUPIVACAINE /EPINEPHRINE/PF 0.5% 30 ML VIAL INJ ONE (11:59)
[2018-01-13] MEDS ORDERED: fentaNYL CITRATE/PF 100 MCG/2 ML AMP IVP PRN ×2 (12:30)
[2018-01-13] MEDS ORDERED: ONDANSETRON HCL 4 MG/2 ML VIAL IVP PRN (12:30)
[2018-01-13] MEDS ORDERED: LABETALOL 100 MG/ 20ML VIAL IVP ONE (13:00)
[2018-01-13] MEDS ORDERED: LABETALOL 100 MG/ 20ML VIAL ONE (13:11)
[2018-01-13] MEDS ORDERED: cloNIDine HCL 0.1 MG TABLET PO PRN (18:00)
[2018-01-13] MEDS ORDERED: amLODIPine BESYLATE 5 MG TABLET PO SCH (21:00)
[2018-01-13] MEDS: cloNIDine HCL 0.1 MG TABLET PO SCH (21:47)
[2018-01-13] MEDS: HEPARIN 25,000 UNITS/D5W 250ML 250 ML IV PRN ×2 (22:13→22:30)
[2018-01-14 00:06] VITALS: BP_SYST 178
[2018-01-14] MEDS: INSULIN REGULAR, HUMAN 100 UNITS/ML, 10 ML VIAL (novoLIN R) SUBCUT PRN ×5 (00:16→23:07)
[2018-01-14] MEDS: D5NS 1,000 ML IV SCH (03:04)
[2018-01-14] MEDS: cloNIDine HCL 0.1 MG TABLET PO SCH ×3 (05:56→23:01)
[2018-01-14] MEDS: HEPARIN 25,000 UNITS/D5W 250ML 250 ML IV PRN (08:07)
[2018-01-14 08:25] VITALS: BP_SYST 136
[2018-01-14] MEDS ORDERED: ASPIRIN 81 MG TAB.CHEW PO ONE (09:00)
[2018-01-14] MEDS: ASCORBIC ACID 500 MG TABLET PO SCH (09:51)
[2018-01-14] MEDS: amLODIPine BESYLATE 10 MG TABLET PO SCH (09:52)
[2018-01-14] MEDS: CILOSTAZOL 50 MG TABLET (PLETAL) PO SCH ×2 (09:53→20:24)
[2018-01-14] MEDS: MORPHINE 2 MG/ML INJ. SYRINGE IVP PRN ×3 (11:57→22:59)
[2018-01-14 12:26] VITALS: BP_SYST 147
[2018-01-14 16:20] VITALS: BP_SYST 119
[2018-01-14] MEDS ORDERED: CIPR-211 PO (17:53)
[2018-01-14] MEDS ORDERED: CLOP75TA32 PO (17:53)
[2018-01-14] MEDS ORDERED: LIP40 PO (17:53)
[2018-01-14] MEDS ORDERED: TRIA1TAB96 PO (17:53)
[2018-01-14] MEDS ORDERED: BENA40TA2 PO (17:53)
[2018-01-14] MEDS ORDERED: DICL75TA5 PO (17:53)
[2018-01-14] MEDS ORDERED: ASPI-1153 PO (17:53)
[2018-01-14] MEDS ORDERED: FURO-150 PO (17:53)
[2018-01-14] MEDS ORDERED: NITR-85 PO (17:53)
[2018-01-14 19:08] VITALS: BP_SYST 140
[2018-01-15 00:13] VITALS: BP_SYST 120
[2018-01-15] MEDS: ACETAMINOPHEN 325 MG TABLET PO PRN ×2 (05:36→15:16)
[2018-01-15] MEDS: MORPHINE 2 MG/ML INJ. SYRINGE IVP PRN ×3 (05:38→17:39)
[2018-01-15] MEDS: cloNIDine HCL 0.1 MG TABLET PO SCH ×2 (05:45→14:15)
[2018-01-15] MEDS: INSULIN REGULAR, HUMAN 100 UNITS/ML, 10 ML VIAL (novoLIN R) SUBCUT PRN ×3 (05:49→17:37)
[2018-01-15 08:02] VITALS: BP_SYST 135
[2018-01-15] MEDS: ASCORBIC ACID 500 MG TABLET PO SCH (09:20)
[2018-01-15] MEDS: CILOSTAZOL 50 MG TABLET (PLETAL) PO SCH (09:21)
[2018-01-15] MEDS: amLODIPine BESYLATE 10 MG TABLET PO SCH (09:21)
[2018-01-15 12:00] VITALS: BP_SYST 131
[2018-01-15 16:00] VITALS: BP_SYST 139
[2018-01-15 16:39] VITALS: BP_SYST 139
== END 2018-01-15 20:25 | DRG 255 ==
LOC: SED 09:05 → SMU 10:29
PROVIDERS: ADMIT Internal Medicine Hospice and Palliative Medicine; ATTEND Internal Medicine Hospice and Palliative Medicine
PROC: 0Y6P0Z0 Detachment at Right 1st Toe, Complete, Open Approach (ICD-10-PCS; principal; 2018-01-13 11:30)
DX: E11.52 Type 2 diabetes mellitus with diabetic peripheral angiopathy with gangrene (principal); E43 Unspecified severe protein-calorie malnutrition; I96 Gangrene, not elsewhere classified; L03.115 Cellulitis of right lower limb; E07.9 Disorder of thyroid, unspecified; I10 Essential (primary) hypertension; Z90.49 Acquired absence of other specified parts of digestive tract; Z79.899 Other long term (current) drug therapy; Z79.01 Long term (current) use of anticoagulants; Z88.0 Allergy status to penicillin
CPT/HCPCS: 36415; 71045; 80053; 81000-TC; 82962; 83605; 84484; 85025; 85610-TC; 85730-TC; 87040-TC; 87081; 87086; 88305; 90656; 93005; 93922; 93971; 94760; 96365; 99285; J1644; J1815; J2250; J2270; J2704; J3010; J3490; J7042; J7120

== ENCOUNTER 2018-01-30 12:20 | Inpatient (IN) | payer OTHER ==
[~2018-01-30] VITALS: Ht 160 cm; Wt 65.8 kg
[~2018-01-30 12:20] MED LIST: ACET-2165 PO; ASCO500T20 PO; ASPI-1153 PO; BENA40TA2 PO; BISA-79 PO; CIPR-211 PO; CLOP75TA32 PO; DAPT500V3 IV; DICL75TA5 PO; FAMO20TA8 PO; FERR-69 PO; FLEETMO RC; FURO-150 PO; HYDR-4272 PO; LIP40 PO; LOVI30 SQ; METO-290 PO; MOM PO; MULT-300 PO; NITR-85 PO; TRIA1TAB96 PO; [UNRECOGNIZED DRUG - CODE] PO
--- NOTE | 2018-01-30 12:20 | NUR ---
Placed in room 4.
[2018-01-30 12:24] VITALS: BP_SYST 122
--- NOTE | 2018-01-30 12:25 | NUR ---
Pt brought in from [facility] [place] per request by Dr. Riley. 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 Upon assessment of R foot, black discoloration on top of foot and on heel, pt denies any pain, no foul smelling drainage noted, pt afebrile w/ temp of 97.2. Pt denies any other complaint at this time. Pt AOX4, speaking full sentences, no signs of acute distress at this time, pt's daughter at bedside.
--- NOTE | 2018-01-30 12:35 | NUR ---
# 20 gauge angiocath placed to RAC. Use of asceptic technique. Opsite placed over site. Blood return noted. Blood for lab drawn from site. Flushed with 10 cc of normal saline. No evidence of infiltration noted. Patient tolerated well.
--- NOTE | 2018-01-30 12:50 | NUR ---
ER at bedside examining patient.
[2018-01-30] MEDS ORDERED: NACL 0.9% 1,000 ML IV ONE (12:56)
[2018-01-30] MEDS ORDERED: CLINDAMYCIN 900 mg/50mL D5W 50 ML IV ONE (13:00)
[2018-01-30 13:26] LABS: ANION GAP 12 (5-15); CALCIUM 8.8 mg/dL (8.4-11.0); CHLORIDE 100 mmol/L (98-107); CREATININE 2.07 mg/dL (0.55-1.30); GLUCOSE 306 mg/dL (70-99); POTASSIUM 4.1 mmol/L (3.5-5.1); SODIUM SERUM 132 mmol/L (136-145); UREA NITROGEN, BLOOD 60 mg/dL (8-21)
[2018-01-30 13:27] LABS: ALANINE AMINOTRANSFERASE 16 U/L (12-78); ALBUMIN 2.9 g/dL (3.4-4.8); ASPARTATE AMINOTRANSFERASE 11 U/L (10-37); C-REACTIVE PROTEIN QUANT 2.3 mg/dL (0-0.5); LIPASE 196 U/L (73-393); TOTAL BILIRUBIN 0.4 mg/dL (0.0-1.0)
[2018-01-30 13:28] LABS: PROTHROMBIN TIME 10.4 SECS (9.5-12.5)
[2018-01-30 13:31] LABS: BASOPHILS % (AUTO) 0.3 % (0.0-2.0); EOSINOPHILS # (AUTO) 0.2 K/uL (0.0-0.4); EOSINOPHILS % (AUTO) 1.2 % (0.0-4.0); HEMATOCRIT 28.5 % (36-48); HEMOGLOBIN 9.2 g/dL (12.0-16.0); LYMPHOCYTES # (AUTO) 1.7 K/uL (1.0-5.5); LYMPHOCYTES % (AUTO) 13.4 % (20.5-51.5); MEAN CORPUSCULAR HEMOGLOBIN 25 pg (27-31); MEAN CORPUSCULAR HGB CONC 32 % (32-36); MEAN CORPUSCULAR VOLUME 79 fL (79.0-98.0); MONOCYTES # (AUTO) 1.3 K/uL (0.0-1.0); MONOCYTES % (AUTO) 10.4 % (1.7-9.3); NEUTROPHILS # (AUTO) 9.6 K/uL (1.8-7.7); NEUTROPHILS % (AUTO) 74.7 % (40.0-70.0); PLATELET COUNT (AUTO) 339 K/uL (130-430); RED BLOOD CELL COUNT(AUTO) 3.63 MIL/uL (4.2-6.2); RED CELL DISTRIBUTION WIDTH 15.9 % (9.0-15.0)
[2018-01-30 13:32] LABS: WHITE BLOOD COUNT (AUTO) 12.8 K/uL (4.8-10.8)
--- NOTE | 2018-01-30 13:32 | NUR ---
Radiology at bedside.
--- NOTE | 2018-01-30 14:25 | NUR ---
Laboratory at bedside.
--- NOTE | 2018-01-30 14:48 | NUR ---
ADMISSION NOTE Received patient from ER via khoi, received report from Jack GUTIERREZ. Patient admitted with diagnosis of Foot Cellulitis. Patient oriented to hospital routine, call light, toileting and safety-patient verbalized understanding.
--- NOTE | 2018-01-30 14:55 | NUR ---
Patient will be admitted to care of Dr. Riley. Admitted to medsurg unit. Will go to room 111a. Belongings list completed. Summary report printed. Report will be given at bedside. Transfer to [facility]. IV present no sign or symptom of infiltration.
--- NOTE | 2018-01-30 15:10 | NUR ---
CONSULTATION PAGED/CALLED Reason for Consultation: [] RESTRAINTS Person Who was Notified: [] DR MAKI Consulting Physician: [] DR Madeline MAKI [employer] Specialty: [] NEPHROLOGY Ordering Physician: [] DR Viridiana MIRANDA Addendum: 01/30/18 at 1521 by Meagan Abdalla MT/ REASON FOR CONSULT IS NOT RESTRAINTS BUT RENAL FAILURE
[2018-01-30 15:17] VITALS: BP_SYST 109
--- NOTE | 2018-01-30 15:42 | NUR ---
NEPHRO CALLS: HAS CALLED ABOUT THE CONSULT. GIVE HIM PATIENT'S INFORMATION AND LAB RESULTS, THEN HE HAS AN ORDER FOR IVF: NORMAL SALINE IVF AT 75 ML/HR.
--- NOTE | 2018-01-30 15:44 | NUR ---
SURGEON CALLS: HAS CALLED AND HAS ORDERED FOR ATRIAL DOPPLER BOTH LEGS.
[2018-01-30] MEDS ORDERED: VANCOMYCIN HCL 1,000 MG in NS 250 ML IV SCH (16:00)
--- NOTE | 2018-01-30 16:30 | NUR ---
RN ROUNDS PATIENT IS RESTING COMFORTABLY IN BED. NO S/S OF DISTRESS OR SOB. IV IS PATENT AND INFUSING. ASSESSMENT WAS DONE. WOUND CARE DONE AND PICTURES TAKEN. PICTURES IN THE CHART. NO NEEDS AT THIS TIME. CALL LIGHT IN REACH, BED IN LOWEST POSITION, AND WILL CONTINUE TO MONITOR.
[2018-01-30] MEDS: NACL 0.9% 1,000 ML IV SCH (16:37)
--- NOTE | 2018-01-30 18:29 | NUR ---
CLOSING NOTE: PATIENT IS RESTING COMFORTABLY IN BED. NO S/S OF DISTRESS OR SOB. PATIENT IS AWAKE AND ALERT. FAMILY IS AT BEDSIDE. IV IS INFUSING. ALL NEEDS MET. SAFETY PRECAUTIONS IN PLACE. CALL LIGHT IN REACH, BED IN LOWEST POSITION, AND WILL GIVE REPORT TO NIGHT NURSE.
[2018-01-30 19:00] VITALS: BP_SYST 131
--- NOTE | 2018-01-30 19:15 | NUR ---
change of shift.pt.presents rt.foot wound.pt.presents partial amputation rt.foot.pt.present rt.foot;necrotic tissue present. pt.presents c/o pain,nausea.rt.foot ret upon pillow.pt.presents possible rt.foot amputation; consult.general status stable.respiratory status stable@room air.call light/telephone placed w/in the pt's reach:dtr's@the bedside.pt.kiswahili:fluent.
[2018-01-30 20:00] VITALS: BP_SYST 131
--- NOTE | 2018-01-30 20:00 | NUR ---
pt.assessed.v/s assessed:values w/in normal limits.no c/o pain,nausea.i have apprised the pt.that snacks are available w/in the shift.no requests@this hour.i have assisted the pt.w/the bedpan.pt.repositioned.general status stable.respiratory status stable.call light/telephone placed w/in the pt's reach.
--- NOTE | 2018-01-30 22:00 | NUR ---
pt.assessed.i have re-established iv acces;location lt.hand;#22g.i have assessed the blood glucose:242mg/dl. pt.repositioned.no requests@this hour.iv general status stable.respiratory status stable.no c/o pain,nausea. call light/telephone placed w/in the pt's reach.
--- NOTE | 2018-01-30 22:11 | NUR ---
CONSULTATION PAGED/CALLED Reason for Consultation: Cellulitus Person Who was Notified: Evelin Consulting Physician: Dr. Hurley Ordering Physician: Dr. Riley
--- NOTE | 2018-01-30 22:23 | NUR ---
PAGED I PAGED DR. MIRANDA @ [phone] I SPOKE WITH SHY EXCHANGE I PAGED SECOND TIME @ [phone] I SPOKE WITH ROBIN EXCHANGE DR. MIRANDA ANSWERED @ [phone]
--- NOTE | 2018-01-30 22:30 | NUR ---
paged;had yet to reconcile pt's medications;i have apprised the pt.is diabetic; to schedule blood glucose order.nor corresponding sliding scale. had ordered blood glucose assessment;ac/hs sliding scale:w/regular insulin.morphine;2mg ivp q-4hrs;pain,restoril;15mg po hs/p: sleep.
--- NOTE | 2018-01-30 23:00 | NUR ---
i have assisted the pt.w/ the bedpan.i have collected the urine smple;ua. no additional requests per the pt.
[2018-01-30] MEDS ORDERED: TEMAZEPAM 15 MG CAPSULE PO PRN (23:30)
[2018-01-30] MEDS ORDERED: MORPHINE 2 MG/ML INJ. SYRINGE IVP PRN (23:30)
--- NOTE | 2018-01-31 | NUR ---
pt.assessed.v/s assessed:values w/in rosa limits.no c/o pain,nausea.no requests@this hour.pt.repositioned. iv fluids infusing.general statu stable.respiratory status stable.call light/telephone placed w/in the pt's reach.
[2018-01-31 00:09] LABS: BILIRUBIN,URINE NEGATIVE (NEGATIVE); BLOOD, URINE NEGATIVE (NEGATIVE); CLARITY/URINE CLEAR (CLEAR); COLOR,URINE YELLOW (YELLOW); GLUCOSE,URINE NEGATIVE (NEGATIVE); KETONES,URINE NEGATIVE (NEGATIVE); LEUKOCYTE ESTERASE ,URINE NEGATIVE (NEGATIVE); NITRITE, URINE NEGATIVE (NEGATIVE); PH,URINE 5.5 (5.0-8.0); PROTEIN URINE NEGATIVE (NEGATIVE); UROBILINOGEN,URINE 0.2 (0.2-1.0)
[2018-01-31] MEDS: INSULIN REGULAR, HUMAN 100 UNITS/ML, 10 ML VIAL (novoLIN R) SUBCUT PRN ×4 (00:28→23:48)
--- NOTE | 2018-01-31 00:30 | NUR ---
i have administered regular insulin:4-units.blood glucose value;242mg/dl.
[2018-01-31 01:30] VITALS: BP_SYST 146
--- NOTE | 2018-01-31 02:00 | NUR ---
pt.assessed.pt.presents quiescent affect;calm,somnolent.pt.repositioned.general status stable. respiratory status stable.no requests@this hour.iv fluids infusing.call light./telephone placed w/in the pt's reach.
--- NOTE | 2018-01-31 04:00 | NUR ---
pt.assessed.pt.presents quiescent affect;calm,somnolent.pt.repositioned.general status stable. respiratory status stable.iv fluids infusing.call light/telephone placed w/in the pt's reach.
[2018-01-31] MEDS: NACL 0.9% 1,000 ML IV SCH ×2 (05:47→16:52)
--- NOTE | 2018-01-31 06:30 | NUR ---
pt.assessed.pt.presents quiescent affect;calm,somnolent.i have assessed the blood glucose;169mg/dl.i have administered 2-units;regular insulin.i have change the iv fluids bag.i have assessed the abdomen wound.i have attended to the wound care;abdomen wound.no c/o pain,nausea.pt.present no requests@this hour.pt.repositioned.call light.telephone placed w/in the pt's reach.
[2018-01-31 06:46] LABS: BASOPHILS % (AUTO) 0.5 % (0.0-2.0); EOSINOPHILS # (AUTO) 0.3 K/uL (0.0-0.4); EOSINOPHILS % (AUTO) 3.2 % (0.0-4.0); HEMATOCRIT 26.5 % (36-48); HEMOGLOBIN 8.5 g/dL (12.0-16.0); LYMPHOCYTES # (AUTO) 1.6 K/uL (1.0-5.5); LYMPHOCYTES % (AUTO) 18.1 % (20.5-51.5); MEAN CORPUSCULAR HEMOGLOBIN 25 pg (27-31); MEAN CORPUSCULAR HGB CONC 32 % (32-36); MEAN CORPUSCULAR VOLUME 79 fL (79.0-98.0); MONOCYTES # (AUTO) 1.3 K/uL (0.0-1.0); MONOCYTES % (AUTO) 14.7 % (1.7-9.3); NEUTROPHILS # (AUTO) 5.6 K/uL (1.8-7.7); NEUTROPHILS % (AUTO) 63.5 % (40.0-70.0); PLATELET COUNT (AUTO) 302 K/uL (130-430); RED BLOOD CELL COUNT(AUTO) 3.36 MIL/uL (4.2-6.2); RED CELL DISTRIBUTION WIDTH 15.8 % (9.0-15.0); WHITE BLOOD COUNT (AUTO) 8.8 K/uL (4.8-10.8)
--- NOTE | 2018-01-31 06:54 | NUR ---
i have assisted the pt.to the restroom.i have assisted the pt's return to the bed.pt.capable top ambulate w/assist-device; walker.no additional requests@this hour.call light/telephone placed w/in the pt's reach.
[2018-01-31 07:13] LABS: ANION GAP 11 (5-15); CALCIUM 8.6 mg/dL (8.4-11.0); CHLORIDE 109 mmol/L (98-107); CREATININE 1.68 mg/dL (0.55-1.30); GLUCOSE 184 mg/dL (70-99); POTASSIUM 4.2 mmol/L (3.5-5.1); SODIUM SERUM 140 mmol/L (136-145); UREA NITROGEN, BLOOD 52 mg/dL (8-21)
[2018-01-31 07:23] LABS: ALANINE AMINOTRANSFERASE 8 U/L (12-78); ALBUMIN 2.5 g/dL (3.4-4.8); ASPARTATE AMINOTRANSFERASE 12 U/L (10-37); TOTAL BILIRUBIN 0.3 mg/dL (0.0-1.0)
[2018-01-31 07:50] VITALS: BP_SYST 127
--- NOTE | 2018-01-31 07:50 | NUR ---
OPENING NOTES, RECEIVED PT IN BED, PT IS AAOX4,NO C/O PAIN. DRY BLACK COLORED WOUND NOTED ON R. FOOT ( S/P GREAT TOE AMPUTATION) AND DRY WOUND TO TOP OF R. FOOT. PT ON BED REST , AMBULATORY WITH FWW AND ASSIST. IV FLUIDS INFUSING WELL, NO S/S OF INFILTRATION OR SWELLING. ENCOURAGED TO TAKE EXTRA PRECAUTION WHEN AMBULATING. CALL LIGHT IN REACH, BED IN LOW POSITION. WILL CONT TO MONITOR.
[2018-01-31] MEDS ORDERED: VANCOMYCIN HCL 1,250 MG in NS 250 ML IV SCH (08:54)
--- NOTE | 2018-01-31 10:34 | NUR ---
PT ASSISTED TO THE BATHROOM, PT AMBULATED WITH FWW WITH MIN ASSIST.
[2018-01-31 12:00] VITALS: BP_SYST 161
[2018-01-31 16:55] VITALS: BP_SYST 150
--- NOTE | 2018-01-31 18:56 | NUR ---
CLOSING NOTES, PT HAS BEEN STABLE THE WHOLE SHIFT. NO C/O PAIN. NO SOB, NO RESP DISTRESS. PT IS AMBULATING TO THE BATHROOM WITH FWW AND ASSISTANCE. ABDOMINAL WOUND DRESSING CHANGED BID ORDERED. IV FLUIDS INFUSING WELL . IV SITE INTACT AND PATENT, NO S/S OF INFILTRATION OR SWELLING. WILL ENDORSE TO NIGHT RN.
[2018-01-31 20:26] VITALS: BP_SYST 147
[2018-01-31] MEDS: LINEZOLID 600 MG IV SCH (21:00)
--- NOTE | 2018-01-31 22:15 | NUR ---
BLOOD SUGAR GLUCOSE 190 MG DL PATIENT AWAKE ALERT 2 UNITS OF REGULAR INSULIN GIVEN SUB Q.
[2018-01-31] MEDS: CILOSTAZOL 50 MG TABLET (PLETAL) PO SCH (23:46)
[2018-02-01] VITALS (7 sets, daily range): BP systolic 129–171
--- NOTE | 2018-02-01 | NUR ---
Hourly Rounding patient resting HOB elevated bed to low position call alba with patient .
--- NOTE | 2018-02-01 00:47 | NUR ---
ZYVOX 600 MG IVPB , MEDICATION NOT AVAILABLE , PIXIX & WITH DATA VISUALIZATION DEVELOPER FOR 01/31/18 @ 2100 .
--- NOTE | 2018-02-01 04:31 | NUR ---
WOUND CARE IMPLEMENTED TO MID ABDOMEN WET TO DRY ORDERED WOUND BED PINK SCANT SERO SANG DRAINAGE , PROCEDURE TOLERATED .
--- NOTE | 2018-02-01 04:35 | NUR ---
ASSIST PATIENT OUT OF BED TO REST ROOM AMBULATE WITH ASSIST FALL MEASURES EFFECTIVE .
--- NOTE | 2018-02-01 04:35 | NUR ---
PARTIAL AMPUTATION RIGHT GREAT TOE BLACK DRY SKIN AREAS NECROTIC , YELLOW SOCKS APPLIED .
[2018-02-01] MEDS ORDERED: LINEZOLID 300 ML IV ONE (05:22)
[2018-02-01] MEDS: LINEZOLID 600 MG IV SCH ×2 (05:38→17:13)
--- NOTE | 2018-02-01 06:18 | NUR ---
ZYVOX 600 MG IVPB GIVEN LATE D/T MED NOT AVAILABLE / Rx MADE AWARE .
[2018-02-01] MEDS: INSULIN REGULAR, HUMAN 100 UNITS/ML, 10 ML VIAL (novoLIN R) SUBCUT PRN ×4 (06:26→20:43)
[2018-02-01] MEDS: NACL 0.9% 1,000 ML IV SCH ×2 (06:26→21:05)
[2018-02-01 07:45] LABS: BASOPHILS % (AUTO) 0.5 % (0.0-2.0); EOSINOPHILS # (AUTO) 0.2 K/uL (0.0-0.4); EOSINOPHILS % (AUTO) 2.9 % (0.0-4.0); HEMATOCRIT 27.5 % (36-48); HEMOGLOBIN 8.9 g/dL (12.0-16.0); LYMPHOCYTES # (AUTO) 1.5 K/uL (1.0-5.5); LYMPHOCYTES % (AUTO) 18.5 % (20.5-51.5); MEAN CORPUSCULAR HEMOGLOBIN 25 pg (27-31); MEAN CORPUSCULAR HGB CONC 32 % (32-36); MEAN CORPUSCULAR VOLUME 78 fL (79.0-98.0); MONOCYTES # (AUTO) 1.1 K/uL (0.0-1.0); MONOCYTES % (AUTO) 13.9 % (1.7-9.3); NEUTROPHILS # (AUTO) 5.4 K/uL (1.8-7.7); NEUTROPHILS % (AUTO) 64.2 % (40.0-70.0); PLATELET COUNT (AUTO) 332 K/uL (130-430); RED BLOOD CELL COUNT(AUTO) 3.54 MIL/uL (4.2-6.2); RED CELL DISTRIBUTION WIDTH 16.6 % (9.0-15.0); WHITE BLOOD COUNT (AUTO) 8.2 K/uL (4.8-10.8)
[2018-02-01 07:51] LABS: ALANINE AMINOTRANSFERASE 10 U/L (12-78); ALBUMIN 2.4 g/dL (3.4-4.8); ANION GAP 7 (5-15); ASPARTATE AMINOTRANSFERASE 15 U/L (10-37); CALCIUM 8.7 mg/dL (8.4-11.0); CHLORIDE 109 mmol/L (98-107); GLUCOSE 201 mg/dL (70-99); POTASSIUM 4.2 mmol/L (3.5-5.1); SODIUM SERUM 139 mmol/L (136-145); TOTAL BILIRUBIN 0.3 mg/dL (0.0-1.0); UREA NITROGEN, BLOOD 23 mg/dL (8-21)
--- NOTE | 2018-02-01 07:55 | NUR ---
OPENING NOTES, RECEIVED PT IN BED, PT IS AAOX4, NO C/O PAIN. NO SOB, NO RESP DISTRESS, NO N/V. IV FLUIDS INFUSING WELL. IV SITE INTACT AND PATENT. NO S/S OF INFILTRATION. SAFETY PRECAUTION KEPT IN PLACE. CALL LIGHT IN REACH. BED IN LOW POSITION. WILL CONT TO MONITOR.
[2018-02-01 08:16] LABS: TOTAL IRON BIND. CAPACITY 242 ug/dL (250-450)
[2018-02-01] MEDS: CILOSTAZOL 50 MG TABLET (PLETAL) PO SCH ×2 (08:28→20:38)
--- NOTE | 2018-02-01 08:35 | NUR ---
all am med offered and taken. pt in no pain, family at bedside. will cont to monitor.
--- NOTE | 2018-02-01 09:59 | NUR ---
PT IN BED, NO C/O PAIN, NO SOB, NO RESP DISTRESS. FAMILY AT BEDSIDE. CALL LIGHT IN REACH. BED IN LOW POSITION. WILL CONT TO MONITOR.
--- NOTE | 2018-02-01 10:35 | NUR ---
PT IN BED, NO S/S OF PAIN, PT WATCHING MOVIE IN HER IPAD. FAMILY AT BEDSIDE. TOLD THAT THAT I SAW ORDER OF DR BALES FOR SURGERY AND ASKED IF DR BALES SPOKE TO THEM ALREADY ABT IT. PT'S DAUGHTER AT BEDSIDE STATED THAT THEY TOLD DR BALES THEY WANT TO THINK ABOUT IT BEFORE THEY SIGN THE CONSENT. WILL CONT TO MONITOR.
--- NOTE | 2018-02-01 11:27 | NUR ---
Nutrition Update Ford Scale 18 noted. Pt admitted for foot cellulitis. Diet: [facility] BMI: 25.7 kg/m2 RD to follow per nutrition care standards.
--- NOTE | 2018-02-01 14:08 | NUR ---
DR BALES WAS HERE AND MADE AWARE THAT PER PT AND FAMILY. PT WANTS TO GO HOME TO DECIDE IF SHE WANTS TO HAVE THE AMPUTATION DONE, TOLD MD THAT DR SAMPSON WAS PAGED TO MAKE AWARE.
--- NOTE | 2018-02-01 17:15 | NUR ---
ALL PM MEDS GIVEN. PT GIVEN 2 UNITS OF REG INSULIN FOR BS 183. FAMILY AT BEDSIDE, PT DENIES PAIN. CALL LIGHT IN REACH. WILL CONT TO MONITOR.
--- NOTE | 2018-02-01 18:51 | NUR ---
CLOSING NOTES, PT HAS BEEN STABLE, NO FEVER, NO C/O PAIN. ALL MEDS OFFERED AND TAKEN. PT AND FAMILY WANTS TO GO HOME AND DECIDE THERE IF SHE WILL GO ON WITH THE SURGERY. SAFETY PRECAUTION KEPT IN PLACE. DR BALES IS AWARE THAT PT WANTS TO GO HOME AND HAS NOT SIGNED CONSENT FOR AMPUTATION. PAGED DR SAMPSON BUT NO CALL BACK. TOLD PT THAT SHE MAY NEED TO STAY LONGER FOR IV ANTIBIOTICS THERAPY. CALL LIGHT IN REACH AT ALL TIMES. WILL ENDORSE TO NIGHT RN.
--- NOTE | 2018-02-01 19:05 | NUR ---
change of shift.pt.presents quiescent affect;pt.presents possible amputation;rt.foot per .pt.has requested to be d/c home:02/02/18 to consider a 2nd opinion.general status stable.respiratory status stable.dtr's a@bedside. call light/telephone w/in the pt's reach.
--- NOTE | 2018-02-01 20:00 | NUR ---
pt.assessed.v/s assessed:values w/in normal limits.pt.presents no c/o pain,nausea.pt.presents quiescent affect;calm. i have apprised the pt.that snacks are available w/in the shift.no requests@this hour.pt.capable to reposition self.iv fluids infusing.general status stable.respiratory status stable@lisa air;o2-sat%%=98%.pt.viewing tablet programming. john light/telephone w/in the pt's reach.
--- NOTE | 2018-02-01 20:30 | NUR ---
i have assesed th blood glucose;value;254mg/dl.no requests@this hour.
--- NOTE | 2018-02-01 21:00 | NUR ---
2100p medication administered:plegama.i have administered insulin;regular;6-units.
--- NOTE | 2018-02-01 22:00 | NUR ---
pt.assessed.pt.presents quiescent affect;calm.somnolent.pt.repositioned.general status stable.respiratory status stable. no requests @this hour.no c/o pain,nausea.iv fluids infusing.call light./telephone placed w/in the pt.'s reach.
--- NOTE | 2018-02-02 | NUR ---
pt.assessed.v/s assessed:values w/in normal; limits.no c/o pain,nausea.no requests@this hour. general status stable.respiratory status stable.pt.repositioned.iv fluids infusing.call light/telephone placed w/in the pt's reach.
[2018-02-02 00:10] VITALS: BP_SYST 138
[2018-02-02] MEDS: NACL 0.9% 1,000 ML IV SCH (00:14)
--- NOTE | 2018-02-02 02:00 | NUR ---
pt.assessed.pt.presents quiescent affect;calm,somnolent.pt.repositioned.general status stable.respiratory status stable.call light/telephone placed w/in the pt's reach.
--- NOTE | 2018-02-02 04:00 | NUR ---
pt.assessed.pt.presents quiescent affect;calm,somnolent.general status stable.respiratory status stable. iv fluids infusing.pt.repositioned.call light/telephone w/in the pt's reach.
[2018-02-02] MEDS: LINEZOLID 600 MG IV SCH (05:16)
--- NOTE | 2018-02-02 06:30 | NUR ---
pt.assessed.pt.presents quiescent status;calm.i have attend to the dsg change;abdomen.i have assessed the blood glucose;196mg/dl.i have administered 2-units;regular insulin.pt.repositioned.iv fluids infusing.i have administered the zyvox:abx,ivpb.0600a dose.call light/telephone place w/in the pt's reach.
[2018-02-02] MEDS: INSULIN REGULAR, HUMAN 100 UNITS/ML, 10 ML VIAL (novoLIN R) SUBCUT PRN (07:07)
[2018-02-02 07:50] VITALS: BP_SYST 158
[2018-02-02] MEDS: CILOSTAZOL 50 MG TABLET (PLETAL) PO SCH (08:26)
--- NOTE | 2018-02-02 08:26 | NUR ---
ALL AM MEDS OFFERED AND TAKEN. NO PROBLEM SWALLOWING. CALL LIGHT W/IN REACH. FAMILY AT BEDSIDE. WAITING FOR MD FOR DC.
--- NOTE | 2018-02-02 11:13 | NUR ---
PT WENT HOME AMA. PT DARIEN AMA FORM, FAMILY WAS WITH PT. PT TAKEN OUTSIDE VIA WHEELCHAIR. ALL BELONGINGS TAKEN BY PATIENT AND FAMILY.
== END 2018-02-02 11:13 | disposition left against medical advice (07) | DRG 300 ==
LOC: SED 12:20 → SMU 14:13
PROVIDERS: ADMIT Internal Medicine Hospice and Palliative Medicine; ATTEND Internal Medicine Hospice and Palliative Medicine
DX: E11.52 Type 2 diabetes mellitus with diabetic peripheral angiopathy with gangrene (principal); L03.115 Cellulitis of right lower limb; N17.9 Acute kidney failure, unspecified; I96 Gangrene, not elsewhere classified; R65.10 Systemic inflammatory response syndrome (SIRS) of non-infectious origin without acute organ dysfunction; I99.8 Other disorder of circulatory system; E11.22 Type 2 diabetes mellitus with diabetic chronic kidney disease; I12.9 Hypertensive chronic kidney disease with stage 1 through stage 4 chronic kidney disease, or unspecified chronic kidney disease; S30.92XA Unspecified superficial injury of abdominal wall, initial encounter; X58.XXXA Exposure to other specified factors, initial encounter; Z53.21 Procedure and treatment not carried out due to patient leaving prior to being seen by health care provider; Z88.0 Allergy status to penicillin; Z90.49 Acquired absence of other specified parts of digestive tract; Z89.411 Acquired absence of right great toe; Z79.899 Other long term (current) drug therapy; Y93.89 Activity, other specified; Y92.89 Other specified places as the place of occurrence of the external cause; Y99.8 Other external cause status; N18.3 Chronic kidney disease, stage 3 (moderate)
CPT/HCPCS: 36415; 71045; 76770; 80053; 81003; 82962; 83540-TC; 83550-TC; 83605; 83690-TC; 85025; 85610-TC; 85730-TC; 86140; 87040-TC; 87081; 93923; 96365; 99285; J1815; J2020; J3370; J3490; J7030; J7050